=== PATIENT | female | born 1965 | race Caucasian/White ===

== ENCOUNTER 2019-01-15 12:39 | Emergency (ER) | payer SELFPAY ==
[2019-01-15 12:53] VITALS: BP 137/89; PULSE 97; TEMP 98; BMI 25.0
--- NOTE | 2019-01-15 14:13 | PDOC ---
History of Present Illness - General Chief Complaint: Injury Stated Complaint: INJURY/LT HAND CUT Time Seen by Provider: 01/15/19 13:45 History Source: Patient Exam Limitations: No Limitations Past History - Travel Traveled outside of the country in the last 30 days: No Close contact w/someone who was outside of country & ill: No - Past Medical History Allergies/Adverse Reactions: Allergies Allergy/AdvReac Type Severity Reaction Status Date / Time No Known Allergies Allergy Verified 01/15/19 14:19 Home Medications: Ambulatory Orders Ibuprofen 600 mg PO Q6H #30 tablet 01/15/19 - Suicide/Smoking/Psychosocial Hx Smoking History: Never smoked Review of Systems - Review of Systems Able to Perform ROS?: Yes Comments:: 01/15/19 19:46 CONSTITUTIONAL: Absent: fever, chills, diaphoresis, generalized weakness, malaise, loss of appetite MUSCULOSKELETAL: Present: L hand pain Absent: myalgia, joint swelling SKIN: Absent: rash, itching, pallor NEUROLOGIC: Absent: headache, focal weakness or paresthesias, dizziness, unsteady gait, seizure, mental status changes, bladder or bowel incontinence PSYCHIATRIC: Absent: anxiety, depression, suicidal or homicidal ideation, hallucinations. Is the patient limited Filipino proficient: No *Physical Exam - Vital Signs Last Vital Signs Temp Pulse Resp BP Pulse Ox 98.0 F 97 H 17 137/89 100 01/15/19 12:47 01/15/19 12:47 01/15/19 12:47 01/15/19 12:47 01/15/19 12:47 - Physical Exam Comments: 01/15/19 19:47 GENERAL: The patient is awake, alert, and fully oriented, in no acute distress. HEAD: Normal with no signs of trauma. EYES: Pupils equal, round and reactive to light, extraocular movements intact, sclera anicteric, conjunctiva clear. EXTREMITIES: TTP of the L 3rd and 4th PIP and DIP. Normal range of motion, no edema. Pt able to oppose all of her L fingers to her thumb. Radial pulses 2+ b/ l. NEUROLOGICAL: Normal speech, normal gait. PSYCH: Normal mood, normal affect. SKIN: Warm, Dry, normal turgor, no rashes or lesions noted. Medical Decision Making - Medical Decision Making 01/15/19 19:48 The patient is a 53-year-old female who presents to the ER today with left third and fourth finger pain. Patient states she was going through the security line/scanner at [employer] when her fingers got jammed into the conveyor belts were her back was going through the detector. She states that she jammed her third and fourth fingers. They're painful to the touch. She states it hurts to bend them. Denies numbness and tingling and weakness. Affected extremities. A/P: Left hand pain On exam tender to palpation of the third and fourth left DIP and PIP joints. No associated swelling. X-ray obtained; wet read of L hand shows no acute fractures. Full range of motion on exam to the left hand. Patient is right-hand dominant. Discharge home with orthopedic follow-up. Motrin given for pain. I discussed the physical exam findings, ancillary test results and final diagnoses with the patient. I answered all of the patient's questions. The patient was satisfied with the care received and felt comfortable with the discharge plan and treatment plan. The Patient agrees to follow up with the primary care physician/specialist within 24-72 hours. Return precautions were given. *DC/Admit/Observation/Transfer Diagnosis at time of Disposition: Hand pain, left - Discharge Dispostion Disposition: HOME Condition at time of disposition: Stable Decision to Admit order: No - Prescriptions Prescriptions: Ibuprofen 600 mg PO Q6H #30 tablet - Referrals Referrals: Yessy Coello MD [Primary Care Provider] - Gokul Dillard MD [Staff Physician] - - Patient Instructions Printed Discharge Instructions: DI for Hand Pain Additional Instructions: Your x-rays are negative for fracture today Use ice to the area to help reduce swelling You may take Motrin 600mg every 6 hours as needed for pain Follow up with orthopedics. A referral has been provided to you Return to the ED for any new or worsening symptoms - Post Discharge Activity Forms/Work/School Notes: Back to Work
[2019-01-15] MEDS ORDERED: IBUPROFEN 600 MG TABLET (FP) PO ONE ×2 (14:21→14:30)
== END 2019-01-15 14:58 | disposition home or self-care (01) ==
LOC: JERFT 12:39
DX: M79.642 Pain in left hand (principal); W23.0XXA Caught, crushed, jammed, or pinched between moving objects, initial encounter; Y93.89 Activity, other specified; Y92.240 Courthouse as the place of occurrence of the external cause; Y99.8 Other external cause status
CPT/HCPCS: 73130-TC-LT-FY; 99281-25